=== PATIENT | male | born 1965 | race Caucasian/White ===

== ENCOUNTER 2018-09-16 14:46 | Emergency (ER) | payer MEDICAID ==
[~2018-09-16] VITALS: Ht 182.9 cm; Wt 92.9 kg
[2018-09-16 15:21] LABS: BASOPHILS # (AUTO) 0.03 x10^3/uL (0-0.1); BASOPHILS % (AUTO) 0 % (0-1); EOSINOPHILS # (AUTO) 0.86 x10^3/uL (0-0.4); EOSINOPHILS % (AUTO) 10 % (1-7); LYMPHOCYTES # (AUTO) 2.28 x10^3/uL (1-3.4); LYMPHOCYTES % (AUTO) 27 % (22-44); MD NO; MEAN CORPUSCULAR HEMOGLOBIN 31.3 pg (27.5-34.5); MEAN CORPUSCULAR HGB CONC 33.7 g/dL (33.2-36.2); MEAN CORPUSCULAR VOLUME 92.8 fL (81-97); MEAN PLATELET VOLUME 7.2 fL (7.4-10.4); MONOCYTES # (AUTO) 0.66 x10^3/uL (0.2-0.8); MONOCYTES % (AUTO) 8 % (2-9); NEUTROPHILS # (AUTO) 4.78 x10^3/uL (1.8-6.8); NEUTROPHILS % (AUTO) 56 % (42-75); PLATELET COUNT 278 x10^3/uL (130-400); RED BLOOD COUNT 4.94 x10^6/uL (4.38-5.82); RED CELL DISTRIBUTION WIDTH 13.1 % (9.4-14.8)
[2018-09-16 15:28] LABS: ALBUMIN 3.8 g/dL (3.4-5.0); ANION GAP 7 mmol/L (5-15); CALCIUM 9.8 mg/dL (8.5-10.1); CHLORIDE 109 mmol/L (98-107)
[2018-09-16] MEDS ORDERED: METO25TA35 PO (15:53)
[2018-09-16] MEDS ORDERED: SERT50TA5 PO (15:53)
[2018-09-16] MEDS ORDERED: HYDR12.53 PO (15:54)
[2018-09-16] MEDS ORDERED: LISI2.5T PO (15:54)
[2018-09-16] MEDS ORDERED: MELO7.5T31 PO (15:55)
[2018-09-16] MEDS ORDERED: ALBU8.5H8 INH (15:55)
[2018-09-16] MEDS ORDERED: THIA100T27 PO (15:56)
[2018-09-16] MEDS ORDERED: TRAZ-136 PO (15:56)
[2018-09-16] MEDS ORDERED: HYDR25TA11 PO (15:56)
[2018-09-16] MEDS ORDERED: BUDE10.22 INH (15:57)
[2018-09-16] MEDS ORDERED: NAPR220C2 PO (15:57)
[2018-09-16] MEDS ORDERED: TIOT18CA INH (15:58)
[2018-09-16 16:14] VITALS: BP 162/93
== END 2018-09-16 17:41 | disposition home or self-care (01) ==
LOC: ED 17:35
DX: I10 Essential (primary) hypertension (principal); J44.9 Chronic obstructive pulmonary disease, unspecified; M19.90 Unspecified osteoarthritis, unspecified site; Z87.891 Personal history of nicotine dependence; Z72.9 Problem related to lifestyle, unspecified
CPT/HCPCS: 36415; 80048; 82040; 85025; 99284

== ENCOUNTER 2019-10-10 14:21 | Inpatient (IN) | payer MEDICAID, OTHER ==
[~2019-10-10] VITALS: Ht 182.9 cm; Wt 93.1 kg
[2019-10-10] VITALS (7 sets, daily range): BP systolic 155–192; BP diastolic 102–119
[~2019-10-10 14:21] MED LIST: ALBU8.5H8 INH; BUDE10.22 INH; HYDR-826 PO; HYDR12.517 PO; LISI2.5T PO; MELO7.5T31 PO; METO25TA35 PO; NAPR220C2 PO; SERT50TA28 PO; THIA100T27 PO; TIOT18CA INH; TRAZ50TA66 PO
--- NOTE | 2019-10-10 14:42 | NUR ---
PT BIB BY [facility] FOR SOB SINCE 99 THIS MORNING. HX OF COPD, PNEMONIA. TRIED ALBUTEROL INHALER AND THAT DIDNT SEEM TO HELP. [facility] PEFORMED A ALBUTEROL BREATHING TREATMENT THAT DIDNT SEEM TO HELP. PT SAYS "I FEEL LIKE IM DROWNING". PT HAS HX OF ALCOHOLISM. STATES HE DRINKS "2 PINTS OF VODKA PER DAY". HE IS SHAKY AND NON AGITATED.
[2019-10-10] MEDS ORDERED: SODIUM CHLORIDE 0.9% 1,000ML IVBOLUS ONE (15:00)
[2019-10-10] MEDS ORDERED: ALBUTEROL/IPRATROPIUM 2.5MG/0.5MG, 3 ML NPPB ONE (15:00)
[2019-10-10] MEDS ORDERED: SODIUM CHLORIDE FLUSH 10ML SYR IVF ONE (15:00)
[2019-10-10] MEDS ORDERED: THIAMINE 100 MG in SODIUM CHLORIDE 0.9% 50 ML IVPB ONE (15:00)
[2019-10-10] MEDS ORDERED: LORazepam 2 MG/ML, 1ML ONE ×2 (15:14→16:18)
[2019-10-10] MEDS ORDERED: ALBUTEROL/IPRATROPIUM 2.5MG/0.5MG, 3 ML ONE (15:15)
[2019-10-10 15:18] LABS: BASOPHILS # (AUTO) 0.01 x10^3/uL (0-0.1); BASOPHILS % (AUTO) 0 % (0-1); EOSINOPHILS # (AUTO) 0.03 x10^3/uL (0-0.4); EOSINOPHILS % (AUTO) 0 % (1-7); LYMPHOCYTES # (AUTO) 1.17 x10^3/uL (1-3.4); LYMPHOCYTES % (AUTO) 9 % (22-44); MD NO; MEAN CORPUSCULAR HEMOGLOBIN 32.5 pg (27.5-34.5); MEAN CORPUSCULAR HGB CONC 33.1 g/dL (33.2-36.2); MEAN CORPUSCULAR VOLUME 98.2 fL (81-97); MEAN PLATELET VOLUME 7.5 fL (7.4-10.4); MONOCYTES % (AUTO) 4 % (2-9); NEUTROPHILS # (AUTO) 11.94 x10^3/uL (1.8-6.8); NEUTROPHILS % (AUTO) 87 % (42-75); PLATELET COUNT 286 x10^3/uL (130-400); RED BLOOD COUNT 5.28 x10^6/uL (4.38-5.82); RED CELL DISTRIBUTION WIDTH 15.2 % (9.4-14.8)
[2019-10-10] MEDS: LORazepam 2 MG/ML, 1ML IVPush PRN ×3 (15:18→20:56)
[2019-10-10 15:29] LABS: ANION GAP 15 mmol/L (5-15); CALCIUM 9.4 mg/dL (8.5-10.1); CHLORIDE 99 mmol/L (98-107); CREATININE 1.08 mg/dL (0.7-1.3)
[2019-10-10 15:33] LABS: TROPONIN I < 0.015 ng/mL (0.000-0.045)
--- NOTE | 2019-10-10 16:27 | NUR ---
PT RESTING IN HOSPITAL BED. PT WAS SHAKING - 1MG ATIVAN GIVEN. CALL LIGHT WITHIN REACH. AWAITING ADM ORDER
[2019-10-10] MEDS ORDERED: ONDANSETRON 2MG/ML, 2ML IVPush PRN (17:00)
[2019-10-10] MEDS ORDERED: ACETAMINOPHEN 325 MG TABLET PO PRN (17:00)
[2019-10-10] MEDS ORDERED: LABETALOL 5MG/ML, 20ML IVPush PRN (17:00)
[2019-10-10] MEDS ORDERED: PROMETHAZINE 25 MG/ML, 1ML IM PRN (17:00)
[2019-10-10] MEDS: methylPREDNISolone SOD SUCC 125 MG/2 ML IVPush SCH ×2 (17:00→17:26)
[2019-10-10] MEDS ORDERED: ASPIRIN 81 MG TABLET CHEW PO ONE (17:00)
[2019-10-10] MEDS ORDERED: ALBUTEROL/IPRATROPIUM 2.5MG/0.5MG, 3 ML HHN SCH (17:00)
--- NOTE | 2019-10-10 17:26 | NUR ---
PRECEPTOR NOTE: PER DR. AMBRIZ, SOLUMEDROL CAN BE HELD UNTIL TOMORROW AFTER PT RECEIVED 60 MG OF PREDNISONE TODAY.
[2019-10-10 17:30] LABS: TROPONIN I < 0.015 ng/mL (0.000-0.045)
[2019-10-10] MEDS ORDERED: HEPARIN 5,000 UNITS/ML, 1ML ONE (17:35)
[2019-10-10] MEDS ORDERED: ASPIRIN 81 MG TABLET CHEW ONE (17:35)
[2019-10-10] MEDS: HEPARIN 5,000 UNITS/ML, 1ML SQ SCH (17:44)
[2019-10-10] MEDS ORDERED: hydrALAzine 20 MG/ML, 1ML ONE (17:53)
[2019-10-10] MEDS: hydrALAzine 20 MG/ML, 1ML IVPush PRN ×2 (17:55→23:26)
[2019-10-10 18:09] LABS: HEMOGLOBIN A1C 6.1 % (4.2-6.3)
--- NOTE | 2019-10-10 18:22 | NUR ---
PRECEPTOR OTE: PT MOVED TO HOSPITAL BED. PT MEDICATED FOR HBP PER MD ORDER. WAITING FOR ROOM ASSIGNMENT.
--- NOTE | 2019-10-10 18:26 | NUR ---
PT AWAITING TELE ROOM. RESTING IN [facility] BED. NO REQUESTS AT THIS TIME.
--- NOTE | 2019-10-10 19:16 | NUR ---
PT IS RESTING IN [facility] BED. AWAITING ROOM ON CARD TELE. CALL LIGHT WITHIN REACH
[2019-10-10] MEDS ORDERED: LORazepam 2 MG/ML, 1ML IV PRN ×5 (20:30)
[2019-10-10] MEDS: HYDROCHLOROTHIAZIDE 12.5 MG CAPSULE PO SCH (20:43)
[2019-10-10] MEDS: METOPROLOL TARTRATE 50 MG TABLET PO SCH (20:43)
[2019-10-10] MEDS: GUAIFENESIN 200 MG TABLET PO SCH ×2 (20:43→21:00)
[2019-10-10] MEDS ORDERED: ATORVASTATIN 80 MG TABLET PO SCH (21:00)
[2019-10-11] VITALS (10 sets, daily range): BP systolic 134–192; BP diastolic 85–123
[2019-10-11 01:08] LABS: TROPONIN I < 0.015 ng/mL (0.000-0.045)
[2019-10-11] MEDS ORDERED: LABETALOL 20 MG/4 ML IVPush PRN (01:30)
[2019-10-11] MEDS: HEPARIN 5,000 UNITS/ML, 1ML SQ SCH ×4 (01:40→23:51)
[2019-10-11] MEDS: NITROGLYCERIN 0.4 MG BOTTLE (25 TABS) SL PRN ×2 (05:21→05:27)
[2019-10-11] MEDS ORDERED: NITROGLYCERIN 0.4 MG/SPRAY SL PRN (05:30)
[2019-10-11 05:57] LABS: BASOPHILS # (AUTO) 0.02 x10^3/uL (0-0.1); BASOPHILS % (AUTO) 0 % (0-1); EOSINOPHILS % (AUTO) 0 % (1-7); LYMPHOCYTES # (AUTO) 0.88 x10^3/uL (1-3.4); LYMPHOCYTES % (AUTO) 12 % (22-44); MD NO; MEAN CORPUSCULAR HEMOGLOBIN 32.3 pg (27.5-34.5); MEAN CORPUSCULAR HGB CONC 33.5 g/dL (33.2-36.2); MEAN CORPUSCULAR VOLUME 96.5 fL (81-97); MEAN PLATELET VOLUME 7.6 fL (7.4-10.4); MONOCYTES # (AUTO) 0.34 x10^3/uL (0.2-0.8); MONOCYTES % (AUTO) 5 % (2-9); NEUTROPHILS # (AUTO) 6.18 x10^3/uL (1.8-6.8); NEUTROPHILS % (AUTO) 83 % (42-75); PLATELET COUNT 255 x10^3/uL (130-400); RED BLOOD COUNT 5.11 x10^6/uL (4.38-5.82); RED CELL DISTRIBUTION WIDTH 15.1 % (9.4-14.8)
[2019-10-11 06:07] LABS: ALANINE AMINOTRANSFERASE 126 U/L (12-78); ALBUMIN 3.9 g/dL (3.4-5.0); ANION GAP 14 mmol/L (5-15); CALCIUM 9.5 mg/dL (8.5-10.1); CHLORIDE 99 mmol/L (98-107)
[2019-10-11 06:11] LABS: CREATININE 0.79 mg/dL (0.7-1.3)
[2019-10-11 06:12] LABS: ALKALINE PHOSPHATASE 124 U/L (45-117); BILIRUBIN,TOTAL 1.1 mg/dL (0.2-1.0); TOTAL PROTEIN 7.7 g/dL (6.4-8.2); TROPONIN I < 0.015 ng/mL (0.000-0.045)
[2019-10-11] MEDS: methylPREDNISolone SOD SUCC 125 MG/2 ML IVPush SCH ×4 (06:38→23:52)
[2019-10-11] MEDS: GUAIFENESIN 200 MG TABLET PO SCH ×4 (06:38→20:51)
[2019-10-11] MEDS: METOPROLOL TARTRATE 50 MG TABLET PO SCH ×2 (09:33→20:52)
[2019-10-11] MEDS: THIAMINE 100MG TABLET PO SCH (09:33)
[2019-10-11] MEDS: TRAZODONE 100MG TABLET PO SCH (09:33)
[2019-10-11] MEDS: LISINOPRIL 40 MG TABLET PO SCH (09:34)
[2019-10-11] MEDS: SERTRALINE 50MG TABLET PO SCH (09:34)
[2019-10-11] MEDS: FOLIC ACID 1 MG TABLET PO SCH (09:34)
[2019-10-11] MEDS: HYDROCHLOROTHIAZIDE 12.5 MG CAPSULE PO SCH (09:34)
[2019-10-11] MEDS: MULTIVITAMINS/MINERALS TABLET PO SCH (09:34)
[2019-10-11] MEDS ORDERED: HYDROCHLOROTHIAZIDE 12.5 MG CAPSULE PO SCH ×2 (14:30→21:00)
[2019-10-12 00:33] VITALS: BP 132/87
[2019-10-12] MEDS: methylPREDNISolone SOD SUCC 125 MG/2 ML IVPush SCH ×3 (04:55→17:14)
[2019-10-12] MEDS: GUAIFENESIN 200 MG TABLET PO SCH ×4 (04:55→21:04)
[2019-10-12 05:52] LABS: BASOPHILS # (AUTO) 0.01 x10^3/uL (0-0.1); BASOPHILS % (AUTO) 0 % (0-1); EOSINOPHILS % (AUTO) 0 % (1-7); LYMPHOCYTES # (AUTO) 0.71 x10^3/uL (1-3.4); LYMPHOCYTES % (AUTO) 6 % (22-44); MD NO; MEAN CORPUSCULAR HEMOGLOBIN 32.2 pg (27.5-34.5); MEAN CORPUSCULAR HGB CONC 33.5 g/dL (33.2-36.2); MEAN CORPUSCULAR VOLUME 96.4 fL (81-97); MEAN PLATELET VOLUME 7.6 fL (7.4-10.4); MONOCYTES # (AUTO) 0.39 x10^3/uL (0.2-0.8); MONOCYTES % (AUTO) 3 % (2-9); NEUTROPHILS # (AUTO) 10.13 x10^3/uL (1.8-6.8); NEUTROPHILS % (AUTO) 90 % (42-75); PLATELET COUNT 245 x10^3/uL (130-400); RED BLOOD COUNT 5.06 x10^6/uL (4.38-5.82); RED CELL DISTRIBUTION WIDTH 15.1 % (9.4-14.8)
[2019-10-12 06:01] LABS: CHLORIDE 98 mmol/L (98-107)
[2019-10-12 06:06] LABS: ALANINE AMINOTRANSFERASE 103 U/L (12-78); ALKALINE PHOSPHATASE 110 U/L (45-117); ANION GAP 10 mmol/L (5-15); BILIRUBIN,TOTAL 0.9 mg/dL (0.2-1.0); CALCIUM 9.5 mg/dL (8.5-10.1); CHOL/HDL RATIO 2.7; CHOLESTEROL, TOTAL 241 mg/dL (140-239); CREATININE 0.97 mg/dL (0.7-1.3); HDL CHOL % 37 % (26-37); HDL CHOLESTEROL (DIRECT) 90 mg/dL (40-60); LDL CHOLESTEROL,CALCULATED 122 mg/dL (54-169); LDL/HDL RATIO 1.4 (0.5-3.0); TOTAL PROTEIN 7.7 g/dL (6.4-8.2); TRIGLYCERIDES 146 mg/dL (50-200); VLDL CHOLESTEROL 29 mg/dL (0-25)
[2019-10-12 07:44] VITALS: BP 147/97
[2019-10-12] MEDS: FOLIC ACID 1 MG TABLET PO SCH (09:40)
[2019-10-12] MEDS: THIAMINE 100MG TABLET PO SCH (09:40)
[2019-10-12] MEDS: SERTRALINE 50MG TABLET PO SCH (09:40)
[2019-10-12] MEDS: METOPROLOL TARTRATE 50 MG TABLET PO SCH ×2 (09:41→20:42)
[2019-10-12] MEDS: MULTIVITAMINS/MINERALS TABLET PO SCH (09:41)
[2019-10-12] MEDS: HEPARIN 5,000 UNITS/ML, 1ML SQ SCH ×2 (09:41→17:14)
[2019-10-12] MEDS: HYDROCHLOROTHIAZIDE 25 MG TABLET PO SCH (09:41)
[2019-10-12] MEDS: LISINOPRIL 40 MG TABLET PO SCH (09:42)
[2019-10-12] MEDS: TRAZODONE 100MG TABLET PO SCH (09:42)
[2019-10-12 13:31] VITALS: BP 123/79
[2019-10-12] MEDS: ALBUTEROL/IPRATROPIUM 2.5MG/0.5MG, 3 ML NPPB SCH ×2 (14:48→20:19)
[2019-10-12] MEDS ORDERED: MAALOX/HYOSCYAMINE/LIDOCAINE 45 ML BTL PO PRN (16:30)
[2019-10-12 20:40] VITALS: BP 119/83
[2019-10-12] MEDS ORDERED: BUDESONIDE 0.5 MG/2 ML INHA NPPB SCH (21:00)
[2019-10-13] MEDS: methylPREDNISolone SOD SUCC 125 MG/2 ML IVPush SCH ×2 (00:14→05:53)
[2019-10-13] MEDS: HEPARIN 5,000 UNITS/ML, 1ML SQ SCH ×4 (00:15→21:11)
[2019-10-13 02:11] VITALS: BP 122/89
[2019-10-13] MEDS: ALBUTEROL/IPRATROPIUM 2.5MG/0.5MG, 3 ML NPPB SCH ×4 (02:28→21:00)
[2019-10-13] MEDS: GUAIFENESIN 200 MG TABLET PO SCH ×4 (05:53→21:10)
[2019-10-13] MEDS: LISINOPRIL 40 MG TABLET PO SCH (08:03)
[2019-10-13] MEDS: SERTRALINE 50MG TABLET PO SCH (08:03)
[2019-10-13] MEDS: TRAZODONE 100MG TABLET PO SCH (08:03)
[2019-10-13] MEDS: THIAMINE 100MG TABLET PO SCH (08:03)
[2019-10-13] MEDS: METOPROLOL TARTRATE 50 MG TABLET PO SCH ×2 (08:03→21:10)
[2019-10-13] MEDS: FOLIC ACID 1 MG TABLET PO SCH (08:03)
[2019-10-13] MEDS: HYDROCHLOROTHIAZIDE 25 MG TABLET PO SCH (08:03)
[2019-10-13] MEDS: MULTIVITAMINS/MINERALS TABLET PO SCH (08:04)
[2019-10-13 08:08] VITALS: BP 146/85
[2019-10-13 13:39] VITALS: BP 109/74
[2019-10-13 19:31] VITALS: BP 118/78
[2019-10-14 01:17] VITALS: BP 121/79
[2019-10-14] MEDS: ALBUTEROL/IPRATROPIUM 2.5MG/0.5MG, 3 ML NPPB SCH ×2 (03:00→09:00)
[2019-10-14 05:43] LABS: CHLORIDE 98 mmol/L (98-107)
[2019-10-14 05:52] LABS: ALANINE AMINOTRANSFERASE 98 U/L (12-78); ALBUMIN 3.3 g/dL (3.4-5.0); ALKALINE PHOSPHATASE 83 U/L (45-117); ANION GAP 8 mmol/L (5-15); BILIRUBIN,TOTAL 0.5 mg/dL (0.2-1.0); CALCIUM 8.4 mg/dL (8.5-10.1); CREATININE 1.01 mg/dL (0.7-1.3); TOTAL PROTEIN 6.1 g/dL (6.4-8.2)
[2019-10-14] MEDS: GUAIFENESIN 200 MG TABLET PO SCH ×2 (06:00→11:57)
[2019-10-14] MEDS: FOLIC ACID 1 MG TABLET PO SCH (08:42)
[2019-10-14] MEDS: THIAMINE 100MG TABLET PO SCH (08:42)
[2019-10-14] MEDS: SERTRALINE 50MG TABLET PO SCH (08:42)
[2019-10-14] MEDS: HYDROCHLOROTHIAZIDE 25 MG TABLET PO SCH (08:43)
[2019-10-14] MEDS: METOPROLOL TARTRATE 50 MG TABLET PO SCH (08:43)
[2019-10-14] MEDS: TRAZODONE 100MG TABLET PO SCH (08:43)
[2019-10-14] MEDS: LISINOPRIL 40 MG TABLET PO SCH (08:44)
[2019-10-14] MEDS: HEPARIN 5,000 UNITS/ML, 1ML SQ SCH (08:44)
[2019-10-14 08:47] VITALS: BP 132/85
[2019-10-14] MEDS: MULTIVITAMINS/MINERALS TABLET PO SCH (08:56)
[2019-10-14] MEDS ORDERED: POTASSIUM CHLORIDE 20 MEQ TAB.ER.PRT PO SCH ×2 (09:00→17:00)
[2019-10-14] MEDS ORDERED: REGADENOSON 0.4 MG/5 ML SYRINGE ONE (09:45)
[2019-10-14 14:18] VITALS: BP 118/73
[2019-10-14] MEDS ORDERED: POTA20TA6 PO (14:19)
[2019-10-14] MEDS ORDERED: TIOT18CA INH (14:19)
[2019-10-14] MEDS ORDERED: GUAI200T37 PO (14:19)
[2019-10-14] MEDS ORDERED: ALBU90AE INH (14:19)
[2019-10-14] MEDS ORDERED: BUDE10.2 INH (14:19)
[2019-10-14] MEDS ORDERED: HYDR25TA6 PO (14:19)
[2019-10-14] MEDS ORDERED: THIA100T67 PO (14:19)
[2019-10-14] MEDS ORDERED: PRED20TA PO (14:19)
[2019-10-14 14:22] VITALS: BP 166/89
[2019-10-14 14:24] VITALS: BP 161/80
== END 2019-10-14 16:13 | disposition home or self-care (01) | DRG 189 ==
LOC: ED 15:06 → EDIP 16:17 → 5SO 19:55 → DCLOUNGE 10-14 15:50
PROVIDERS: ADMIT Internal Medicine; ATTEND Internal Medicine
DX: J96.21 Acute and chronic respiratory failure with hypoxia (principal); E87.1 Hypo-osmolality and hyponatremia; E87.2 Acidosis; F10.239 Alcohol dependence with withdrawal, unspecified; J44.1 Chronic obstructive pulmonary disease with (acute) exacerbation; D72.829 Elevated white blood cell count, unspecified; E87.6 Hypokalemia; G47.00 Insomnia, unspecified; G89.4 Chronic pain syndrome; I10 Essential (primary) hypertension; I16.0 Hypertensive urgency; K21.9 Gastro-esophageal reflux disease without esophagitis; M19.90 Unspecified osteoarthritis, unspecified site; Z87.891 Personal history of nicotine dependence; Z91.14 Patient's other noncompliance with medication regimen; R73.9 Hyperglycemia, unspecified; R00.0 Tachycardia, unspecified
CPT/HCPCS: 36415; 93017; 99285; J7620; 71045; 78452; 80048; 80053; 80061; 80307; 82040; 83036; 84443; 84484; 85025; 93005; 93306; 94640; G0378; J1644; J2785; J3411; J7509; A9502; J0360; J2060; J2930; J3490; J7030; J7512; Q0177

== ENCOUNTER 2019-11-27 08:18 | Inpatient (IN) | payer SELFPAY ==
[~2019-11-27] VITALS: Ht 182.9 cm; Wt 97.2 kg
[~2019-11-27 08:18] MED LIST changes: +ALBU90AE INH; +BUDE10.2 INH; +GUAI200T37 PO; +HYDR25TA6 PO; +POTA20TA6 PO; +PRED20TA PO; +THIA100T67 PO
--- NOTE | 2019-11-27 08:41 | NUR ---
PT HR TACH, PT HAS MINIMAL TREMORS IN BILAT HANDS.
[2019-11-27] MEDS ORDERED: ALBUTEROL/IPRATROPIUM 2.5MG/0.5MG, 3 ML ONE (08:57)
[2019-11-27] MEDS ORDERED: THIAMINE 100MG TABLET PO ONE (09:00)
[2019-11-27] MEDS ORDERED: ONDANSETRON ODT 4 MG PO ONE (09:00)
[2019-11-27] MEDS ORDERED: LORazepam 2 MG/ML, 1ML IVPush ONE ×2 (09:00→11:00)
[2019-11-27] MEDS ORDERED: SODIUM CHLORIDE 0.9% 1,000ML IVBOLUS ONE ×2 (09:00→11:00)
[2019-11-27] MEDS ORDERED: ONDANSETRON ODT 4 MG ONE (09:04)
[2019-11-27] MEDS ORDERED: THIAMINE 100MG TABLET ONE (09:04)
[2019-11-27] MEDS ORDERED: LORazepam 2 MG/ML, 1ML ONE ×2 (09:04→11:08)
[2019-11-27] MEDS: ALBUTEROL/IPRATROPIUM 2.5MG/0.5MG, 3 ML NPPB SCH (09:05)
[2019-11-27 09:21] LABS: BASOPHILS # (AUTO) 0.03 x10^3/uL (0-0.1); BASOPHILS % (AUTO) 0 % (0-1); EOSINOPHILS # (AUTO) 0.03 x10^3/uL (0-0.4); EOSINOPHILS % (AUTO) 0 % (1-7); LYMPHOCYTES # (AUTO) 1.66 x10^3/uL (1-3.4); LYMPHOCYTES % (AUTO) 12 % (22-44); MD NO; MEAN CORPUSCULAR HGB CONC 33.6 g/dL (33.2-36.2); MEAN CORPUSCULAR VOLUME 98.2 fL (81-97); MONOCYTES # (AUTO) 0.62 x10^3/uL (0.2-0.8); MONOCYTES % (AUTO) 5 % (2-9); NEUTROPHILS # (AUTO) 11.03 x10^3/uL (1.8-6.8); NEUTROPHILS % (AUTO) 83 % (42-75); PLATELET COUNT 390 x10^3/uL (130-400); RED BLOOD COUNT 5.22 x10^6/uL (4.38-5.82); RED CELL DISTRIBUTION WIDTH 14.4 % (9.4-14.8)
--- NOTE | 2019-11-27 09:30 | NUR ---
IV STARTED, ORDERED MEDS AND FLUIDS GIVEN. SEE CHARTED VITALS. PT IN HOSPITAL GOWN. CARDIAC AND VITALS MONITORS PLACED ON PT. CALL LIGHT WITHIN REACH. WILL CONTINUE TO MONITOR.
[2019-11-27 09:33] LABS: ALBUMIN 4.3 g/dL (3.4-5.0); ANION GAP 18 mmol/L (5-15); CALCIUM 9.3 mg/dL (8.5-10.1); CHLORIDE 99 mmol/L (98-107)
[2019-11-27 09:35] LABS: ALANINE AMINOTRANSFERASE 100 U/L (12-78); ALKALINE PHOSPHATASE 121 U/L (45-117); CREATININE 1.22 mg/dL (0.7-1.3); TOTAL PROTEIN 8.7 g/dL (6.4-8.2)
--- NOTE | 2019-11-27 10:11 | NUR ---
PT RESTING CALML IN BED, NO STATED NEEDS AT THIS TIME. PT ABLE TO GIVE URINE SAMPLE, URINE WALKED TO LAB. WILL CONTINUE TO MONITOR.
[2019-11-27 10:25] LABS: AMPHETAMINE SCREEN, URINE Negative (Negative); BARBITURATE SCREEN, URINE Negative (Negative); BENZODIAZEPINE SCREEN, URINE Negative (Negative); CANNABINOID SCREEN, URINE Negative (Negative); COCAINE SCREEN, URINE Negative (Negative); METHADONE SCREEN, URINE Negative (Negative); OPIATE SCREEN, URINE Negative (Negative)
--- NOTE | 2019-11-27 11:22 | NUR ---
ORDERED MEDS AND FLUIDS ADMINISTERED. PT CONTINUES TO REST CALMLY IN BED. PT STATED FIRST DOSE OF ORDERED ATIVAN DIDN'T HELP THE SHAKES, BUT MADE HIM TIRED. PT DOES NOT SEEM TREMULOUS AT THIS TIME. CALL LIGHT WITHIN REACH. WILL CONTINUE TO MONITOR.
--- NOTE | 2019-11-27 11:51 | NUR ---
REPORT RECEIVED, ASSUMED CARE OF PT, VSS, PT DENIES NEEDS AT THIS TIME
[2019-11-27] MEDS ORDERED: SODIUM CHLORIDE 0.9% 1,000 ML IV ONE (12:47)
[2019-11-27] MEDS ORDERED: SODIUM CHLORIDE FLUSH 10ML SYR IVF PRN (13:00)
--- NOTE | 2019-11-27 13:16 | NUR ---
IV FLUID HUNG PER [place], PT UPDATED ON POC. NAD NOTED
[2019-11-27] MEDS ORDERED: PROMETHAZINE 25 MG/ML, 1ML IM PRN (14:30)
[2019-11-27] MEDS ORDERED: DOCUSATE 100 MG CAPSULE PO PRN (14:30)
[2019-11-27] MEDS ORDERED: ONDANSETRON 2MG/ML, 2ML IVPush PRN (14:30)
[2019-11-27] MEDS ORDERED: POLYETHYLENE GLYCOL 17 GM PACKET PO PRN (14:30)
[2019-11-27] MEDS ORDERED: BISACODYL 10 MG SUPP PR PRN (14:30)
[2019-11-27] MEDS ORDERED: ACETAMINOPHEN 325 MG TABLET PO PRN (14:30)
[2019-11-27] MEDS ORDERED: LORazepam 1MG TABLET PO PRN ×2 (15:00)
[2019-11-27 15:15] LABS: TROPONIN I < 0.015 ng/mL (0.000-0.045)
[2019-11-27] MEDS ORDERED: ALBUTEROL/IPRATROPIUM 2.5MG/0.5MG, 3 ML NPPB PRN (15:30)
--- NOTE | 2019-11-27 15:57 | NUR ---
REPORT CALLED TO RECIEVING AVELINA SANCHEZ
[2019-11-27 16:34] VITALS: BP 168/91
[2019-11-27 17:13] LABS: MICROSCOPIC NOT IND
[2019-11-27 17:21] LABS: CULTURE INDICATED? NO
[2019-11-27] MEDS: methylPREDNISolone SOD SUCC 40 MG/ML IVPush SCH ×2 (17:31→23:01)
[2019-11-27] MEDS: ENOXAPARIN 40 MG/0.4 ML SQ SCH (17:31)
[2019-11-27] MEDS: CHLORDIAZEPOXIDE 25 MG CAPSULE PO SCH ×2 (17:31→23:01)
[2019-11-27] MEDS: LORazepam 0.5MG TABLET PO PRN ×2 (17:35→20:58)
[2019-11-27 18:49] VITALS: BP_SYST 166; BP_SYST 169; BP_DIAS 101; BP_DIAS 112
[2019-11-27 20:59] LABS: TROPONIN I < 0.015 ng/mL (0.000-0.045)
[2019-11-28 00:22] VITALS: BP 149/98
[2019-11-28] MEDS: LORazepam 0.5MG TABLET PO PRN ×5 (02:16→21:19)
[2019-11-28 03:05] LABS: BASOPHILS # (AUTO) 0.02 x10^3/uL (0-0.1); BASOPHILS % (AUTO) 0 % (0-1); EOSINOPHILS % (AUTO) 0 % (1-7); LYMPHOCYTES # (AUTO) 0.61 x10^3/uL (1-3.4); LYMPHOCYTES % (AUTO) 13 % (22-44); MD NO; MEAN CORPUSCULAR HEMOGLOBIN 33.1 pg (27.5-34.5); MEAN CORPUSCULAR HGB CONC 34.1 g/dL (33.2-36.2); MEAN CORPUSCULAR VOLUME 97.1 fL (81-97); MEAN PLATELET VOLUME 7.7 fL (7.4-10.4); MONOCYTES # (AUTO) 0.04 x10^3/uL (0.2-0.8); MONOCYTES % (AUTO) 1 % (2-9); NEUTROPHILS % (AUTO) 85 % (42-75); PLATELET COUNT 312 x10^3/uL (130-400); RED BLOOD COUNT 4.59 x10^6/uL (4.38-5.82)
[2019-11-28 03:07] LABS: ALANINE AMINOTRANSFERASE 65 U/L (12-78); ALBUMIN 3.7 g/dL (3.4-5.0); ANION GAP 7 mmol/L (5-15); CALCIUM 8.9 mg/dL (8.5-10.1); CHLORIDE 103 mmol/L (98-107); CREATININE 0.87 mg/dL (0.7-1.3)
[2019-11-28 03:10] LABS: TROPONIN I < 0.015 ng/mL (0.000-0.045)
[2019-11-28 03:18] LABS: ALKALINE PHOSPHATASE 101 U/L (45-117); BILIRUBIN,TOTAL 0.8 mg/dL (0.2-1.0); TOTAL PROTEIN 7.3 g/dL (6.4-8.2)
[2019-11-28] MEDS: methylPREDNISolone SOD SUCC 40 MG/ML IVPush SCH ×4 (05:04→23:17)
[2019-11-28] MEDS: CHLORDIAZEPOXIDE 25 MG CAPSULE PO SCH ×2 (05:04→10:47)
[2019-11-28 07:01] VITALS: BP 158/100
[2019-11-28] MEDS ORDERED: POTASSIUM PHOSPHATE 44 MEQ in SODIUM CHLORIDE 0.9% 500 ML IV ONE (08:30)
[2019-11-28] MEDS: MULTIVITS,STRESS FORMULA 1 TABLET PO SCH (10:46)
[2019-11-28] MEDS: FOLIC ACID 1 MG TABLET PO SCH (10:47)
[2019-11-28] MEDS: THIAMINE 100MG TABLET PO SCH (10:47)
[2019-11-28] MEDS: MULTIVITAMINS/MINERALS TABLET PO SCH (10:47)
[2019-11-28] MEDS: GABAPENTIN 300 MG CAPSULE PO SCH ×3 (10:47→21:19)
[2019-11-28] MEDS: ASCORBIC ACID 500 MG TABLET PO SCH ×2 (10:47→16:51)
[2019-11-28] MEDS ORDERED: ALBUTEROL SULFATE 2.5 MG/3 ML NPPB PRN (11:30)
[2019-11-28 13:02] VITALS: BP 170/110
[2019-11-28] MEDS: ALBUTEROL/IPRATROPIUM 2.5MG/0.5MG, 3 ML NPPB SCH ×2 (15:00→21:00)
[2019-11-28] MEDS: OXYcodone IR 5MG TABLET PO PRN ×2 (15:08→21:21)
[2019-11-28 15:18] VITALS: BP 154/100
[2019-11-28] MEDS: CHOLECALCIFEROL 400 UNITS TABLET PO SCH (16:50)
[2019-11-28] MEDS: ENOXAPARIN 40 MG/0.4 ML SQ SCH (16:50)
[2019-11-28 17:06] VITALS: BP 151/96
[2019-11-28 19:41] VITALS: BP 155/99
[2019-11-28] MEDS: BUDESONIDE 0.5 MG/2 ML INHA INH SCH (21:00)
[2019-11-29 01:55] VITALS: BP 144/90
[2019-11-29] MEDS: OXYcodone IR 5MG TABLET PO PRN ×5 (02:13→22:53)
[2019-11-29] MEDS: ALBUTEROL/IPRATROPIUM 2.5MG/0.5MG, 3 ML NPPB SCH ×4 (02:52→20:38)
[2019-11-29] MEDS: methylPREDNISolone SOD SUCC 40 MG/ML IVPush SCH ×4 (05:02→22:53)
[2019-11-29] MEDS: LORazepam 0.5MG TABLET PO PRN (05:02)
[2019-11-29 05:24] LABS: MEAN CORPUSCULAR HGB CONC 33.5 g/dL (33.2-36.2); MEAN CORPUSCULAR VOLUME 98.3 fL (81-97); PLATELET COUNT 291 x10^3/uL (130-400); RED BLOOD COUNT 4.27 x10^6/uL (4.38-5.82); RED CELL DISTRIBUTION WIDTH 14.8 % (9.4-14.8)
[2019-11-29 05:26] LABS: ALBUMIN 3.5 g/dL (3.4-5.0); ANION GAP 11 mmol/L (5-15); CALCIUM 8.9 mg/dL (8.5-10.1); CHLORIDE 104 mmol/L (98-107)
[2019-11-29 06:41] LABS: BASOPHILS % (AUTO) 0 % (0-1); EOSINOPHILS % (AUTO) 0 % (1-7); LYMPHOCYTES # (AUTO) 0.64 x10^3/uL (1-3.4); LYMPHOCYTES % (AUTO) 6 % (22-44); MD SCAN; MONOCYTES # (AUTO) 0.47 x10^3/uL (0.2-0.8); MONOCYTES % (AUTO) 4 % (2-9); NEUTROPHILS # (AUTO) 10.07 x10^3/uL (1.8-6.8); NEUTROPHILS % (AUTO) 90 % (42-75)
[2019-11-29 07:33] VITALS: BP 157/100
[2019-11-29] MEDS ORDERED: POTASSIUM PHOSPHATE 44 MEQ in SODIUM CHLORIDE 0.9% 500 ML IV ONE (08:00)
[2019-11-29] MEDS ORDERED: MAGNESIUM SULFATE PMX 2GM/50ML 50 ML IV ONE (08:00)
[2019-11-29] MEDS ORDERED: POTASSIUM CHLORIDE 20 MEQ in SODIUM CHLORIDE 0.9% 250 ML IV ONE (08:00)
[2019-11-29] MEDS: GABAPENTIN 300 MG CAPSULE PO SCH ×3 (09:02→21:16)
[2019-11-29] MEDS: ASCORBIC ACID 500 MG TABLET PO SCH ×2 (09:02→16:44)
[2019-11-29] MEDS: THIAMINE 100MG TABLET PO SCH (09:02)
[2019-11-29] MEDS: MULTIVITAMINS/MINERALS TABLET PO SCH (09:02)
[2019-11-29] MEDS: MULTIVITS,STRESS FORMULA 1 TABLET PO SCH (09:02)
[2019-11-29] MEDS: FOLIC ACID 1 MG TABLET PO SCH (09:02)
[2019-11-29] MEDS: BUDESONIDE 0.5 MG/2 ML INHA INH SCH ×2 (09:40→20:38)
[2019-11-29 12:03] VITALS: BP 163/105
[2019-11-29] MEDS: ENOXAPARIN 40 MG/0.4 ML SQ SCH (16:44)
[2019-11-29] MEDS: CHOLECALCIFEROL 400 UNITS TABLET PO SCH (16:44)
[2019-11-29 19:50] VITALS: BP 155/99
[2019-11-30] VITALS (8 sets, daily range): BP systolic 148–194; BP diastolic 94–114
[2019-11-30] MEDS: ALBUTEROL/IPRATROPIUM 2.5MG/0.5MG, 3 ML NPPB SCH ×4 (02:52→20:24)
[2019-11-30] MEDS: OXYcodone IR 5MG TABLET PO PRN ×5 (03:47→21:05)
[2019-11-30 05:19] LABS: BASOPHILS # (AUTO) 0.02 x10^3/uL (0-0.1); BASOPHILS % (AUTO) 0 % (0-1); CHLORIDE 104 mmol/L (98-107); EOSINOPHILS % (AUTO) 0 % (1-7); LYMPHOCYTES # (AUTO) 0.88 x10^3/uL (1-3.4); LYMPHOCYTES % (AUTO) 8 % (22-44); MD NO; MEAN CORPUSCULAR HEMOGLOBIN 32.6 pg (27.5-34.5); MEAN CORPUSCULAR HGB CONC 33.4 g/dL (33.2-36.2); MEAN CORPUSCULAR VOLUME 97.6 fL (81-97); MEAN PLATELET VOLUME 8.1 fL (7.4-10.4); MONOCYTES # (AUTO) 0.31 x10^3/uL (0.2-0.8); MONOCYTES % (AUTO) 3 % (2-9); NEUTROPHILS # (AUTO) 10.27 x10^3/uL (1.8-6.8); NEUTROPHILS % (AUTO) 89 % (42-75); PLATELET COUNT 281 x10^3/uL (130-400); RED BLOOD COUNT 4.41 x10^6/uL (4.38-5.82); RED CELL DISTRIBUTION WIDTH 14.6 % (9.4-14.8)
[2019-11-30 05:25] LABS: ALBUMIN 3.6 g/dL (3.4-5.0); ANION GAP 10 mmol/L (5-15); CALCIUM 8.8 mg/dL (8.5-10.1); CREATININE 0.89 mg/dL (0.7-1.3)
[2019-11-30] MEDS: methylPREDNISolone SOD SUCC 40 MG/ML IVPush SCH (06:06)
[2019-11-30] MEDS: GABAPENTIN 300 MG CAPSULE PO SCH ×3 (08:05→21:04)
[2019-11-30] MEDS: FOLIC ACID 1 MG TABLET PO SCH (08:07)
[2019-11-30] MEDS: THIAMINE 100MG TABLET PO SCH (08:07)
[2019-11-30] MEDS: MULTIVITAMINS/MINERALS TABLET PO SCH (08:07)
[2019-11-30] MEDS: MULTIVITS,STRESS FORMULA 1 TABLET PO SCH (08:07)
[2019-11-30] MEDS: ASCORBIC ACID 500 MG TABLET PO SCH ×2 (08:07→16:32)
[2019-11-30] MEDS: BUDESONIDE 0.5 MG/2 ML INHA INH SCH ×2 (09:00→20:24)
[2019-11-30] MEDS ORDERED: OXYcodone IR 5MG TABLET PO PRN (09:30)
[2019-11-30] MEDS ORDERED: ACETAMINOPHEN 325 MG TABLET PO PRN (09:30)
[2019-11-30] MEDS ORDERED: CARVEDILOL 6.25 MG TABLET ONE (11:55)
[2019-11-30] MEDS: CARVEDILOL 6.25 MG TABLET PO SCH (12:15)
[2019-11-30] MEDS: SODIUM CHLORIDE 0.9% 1,000 ML IV SCH (12:17)
[2019-11-30] MEDS: CHOLECALCIFEROL 400 UNITS TABLET PO SCH (16:32)
[2019-11-30] MEDS: ENOXAPARIN 40 MG/0.4 ML SQ SCH (16:33)
[2019-12-01 02:01] VITALS: BP 136/89
[2019-12-01] MEDS: OXYcodone IR 5MG TABLET PO PRN ×2 (02:04→07:29)
[2019-12-01] MEDS: SODIUM CHLORIDE 0.9% 1,000 ML IV SCH (02:10)
[2019-12-01] MEDS: CARVEDILOL 6.25 MG TABLET PO SCH (05:49)
[2019-12-01 07:24] VITALS: BP 180/88
[2019-12-01 07:25] VITALS: BP_SYST 180; BP_DIAS 63; BP_DIAS 69
[2019-12-01] MEDS: GABAPENTIN 300 MG CAPSULE PO SCH (08:13)
[2019-12-01] MEDS: FOLIC ACID 1 MG TABLET PO SCH (08:13)
[2019-12-01] MEDS: MULTIVITAMINS/MINERALS TABLET PO SCH (08:13)
[2019-12-01] MEDS: ASCORBIC ACID 500 MG TABLET PO SCH (08:13)
[2019-12-01] MEDS: MULTIVITS,STRESS FORMULA 1 TABLET PO SCH (08:13)
[2019-12-01] MEDS: THIAMINE 100MG TABLET PO SCH (08:14)
[2019-12-01 08:52] VITALS: BP 102/69
[2019-12-01] MEDS ORDERED: ISOSORBIDE DINITRATE 10 MG TABLET PO SCH (09:00)
[2019-12-01] MEDS ORDERED: SODIUM CHLORIDE 0.9% 1,000 ML IV SCH (09:30)
[2019-12-01] MEDS: ALBUTEROL/IPRATROPIUM 2.5MG/0.5MG, 3 ML NPPB SCH (09:40)
[2019-12-01] MEDS: BUDESONIDE 0.5 MG/2 ML INHA INH SCH (09:40)
== END 2019-12-01 09:58 | disposition left against medical advice (07) | DRG 433 ==
LOC: ED 10:38 → INTOOBSV 12:47 → EDIP 12:47 → OBSVTOIN 14:29 → 4EST 16:15
PROVIDERS: ADMIT Internal Medicine; ATTEND Internal Medicine
DX: K70.10 Alcoholic hepatitis without ascites (principal); E87.1 Hypo-osmolality and hyponatremia; E87.2 Acidosis; J44.1 Chronic obstructive pulmonary disease with (acute) exacerbation; R65.10 Systemic inflammatory response syndrome (SIRS) of non-infectious origin without acute organ dysfunction; F10.288 Alcohol dependence with other alcohol-induced disorder; F10.239 Alcohol dependence with withdrawal, unspecified; D75.89 Other specified diseases of blood and blood-forming organs; E83.42 Hypomagnesemia; Z53.29 Procedure and treatment not carried out because of patient's decision for other reasons; E87.6 Hypokalemia; G47.00 Insomnia, unspecified; G62.9 Polyneuropathy, unspecified; G89.29 Other chronic pain; I10 Essential (primary) hypertension; E87.8 Other disorders of electrolyte and fluid balance, not elsewhere classified; I77.819 Aortic ectasia, unspecified site; R73.9 Hyperglycemia, unspecified; I71.4 Abdominal aortic aneurysm, without rupture; M06.9 Rheumatoid arthritis, unspecified; R56.9 Unspecified convulsions; Z86.73 Personal history of transient ischemic attack (TIA), and cerebral infarction without residual deficits; Z87.891 Personal history of nicotine dependence; Z91.14 Patient's other noncompliance with medication regimen; Z90.89 Acquired absence of other organs
CPT/HCPCS: 36415; 96360; 96361; 99285; J7620; J7626; 71045; 80053; 80069; 80307; 81003; 83735; 84100; 84443; 84484; 85025; 93005; 94640; G0378; J1650; J3480; Q0162; J2060; J2920; J3475; J7030; J7040; J7050

== ENCOUNTER 2019-12-07 13:27 | Emergency (ER) | payer SELFPAY ==
[~2019-12-07] VITALS: Ht 182.9 cm; Wt 95.0 kg
--- NOTE | 2019-12-07 13:35 | NUR ---
Neptali brody in [facility] - 12/07/19 at 1345 by VANITA PT TO IMAGING AT THIS TIME
[2019-12-07 13:36] VITALS: BP 99/68
--- NOTE | 2019-12-07 13:48 | NUR ---
PT BIB [facility], PT WITH SI. PT DRANK 2 PINTS OF VODKA PER EMS REPORT. PT WITH NO PRIOR HX OF SI/SA. PT STATES HE IS DEPRESSED BECAUSE HIS WHOLE FAMILY HATES HIM. VSS. ERMD IN TO EVAL PT
--- NOTE | 2019-12-07 14:10 | NUR ---
break RN note: room is secure. sitter monitoring from [facility] for safety. pt informed of need to provide urine sample, urinal supplied. pt is a&o, resps even and unlabored, pt is uncooperative with RN request at this time, stating he wants his phone back. pt's belongings have been bagged and placed in locked cabinet by primary RN.
[2019-12-07 14:13] LABS: BASOPHILS # (AUTO) 0.05 x10^3/uL (0-0.1); BASOPHILS % (AUTO) 1 % (0-1); EOSINOPHILS # (AUTO) 0.53 x10^3/uL (0-0.4); EOSINOPHILS % (AUTO) 5 % (1-7); LYMPHOCYTES # (AUTO) 3.15 x10^3/uL (1-3.4); LYMPHOCYTES % (AUTO) 32 % (22-44); MD NO; MEAN CORPUSCULAR HEMOGLOBIN 32.5 pg (27.5-34.5); MEAN CORPUSCULAR VOLUME 98.5 fL (81-97); MEAN PLATELET VOLUME 7.6 fL (7.4-10.4); MONOCYTES # (AUTO) 1.41 x10^3/uL (0.2-0.8); MONOCYTES % (AUTO) 14 % (2-9); NEUTROPHILS # (AUTO) 4.61 x10^3/uL (1.8-6.8); NEUTROPHILS % (AUTO) 47 % (42-75); PLATELET COUNT 290 x10^3/uL (130-400); RED BLOOD COUNT 4.69 x10^6/uL (4.38-5.82); RED CELL DISTRIBUTION WIDTH 14.4 % (9.4-14.8)
[2019-12-07 14:22] LABS: ALBUMIN 3.4 g/dL (3.4-5.0); ANION GAP 8 mmol/L (5-15); CALCIUM 9.4 mg/dL (8.5-10.1); CHLORIDE 105 mmol/L (98-107); SALICYLATE LEVEL < 1.7 mg/dL (2.8-20.0)
[2019-12-07 14:23] LABS: CREATININE 1.05 mg/dL (0.7-1.3)
--- NOTE | 2019-12-07 14:40 | NUR ---
report given back to primary AVELINA Parker.
--- NOTE | 2019-12-07 16:24 | NUR ---
PT REQUESTING TO SPEAK TO PONCE. PT STATES HE IS NO LONGER SUICIDAL. PT WOULD LIKE TO GO HOME, PONCE IN TO EVAL PT.
--- NOTE | 2019-12-07 17:20 | NUR ---
ER TO DC PT. PT NO LONGER ENDORSING THOUGHTS OF SUICIDE.
== END 2019-12-07 17:27 | disposition home or self-care (01) ==
LOC: ED 15:39
DX: F10.220 Alcohol dependence with intoxication, uncomplicated (principal); J44.9 Chronic obstructive pulmonary disease, unspecified; I10 Essential (primary) hypertension; Y90.0 Blood alcohol level of less than 20 mg/100 ml
CPT/HCPCS: 36415; 80048; 80307; 82040; 85025; 99283

== ENCOUNTER 2020-01-08 18:22 | Emergency (ER) | payer SELFPAY ==
[~2020-01-08] VITALS: Ht 182.9 cm; Wt 92.0 kg
--- NOTE | 2020-01-08 18:50 | NUR ---
PT IN ROOM AT THIS TIME. DENIES HI/SI. CARDIAC, NIBP, AND O2 MONITORING IN PLACE. PT AWAITING MD BELTRAN AT THIS TIME. NO WANTS OR NEDDS EXPRESSED.
[2020-01-08] MEDS ORDERED: SODIUM CHLORIDE 0.9% 1,000ML IVBOLUS ONE (19:00)
[2020-01-08] MEDS ORDERED: THIAMINE 100MG TABLET PO ONE (19:00)
[2020-01-08] MEDS ORDERED: SODIUM CHLORIDE FLUSH 10ML SYR IVF ONE (19:00)
[2020-01-08] MEDS ORDERED: ALBUTEROL/IPRATROPIUM 2.5MG/0.5MG, 3 ML NPPB ONE (19:00)
[2020-01-08 19:10] LABS: BASOPHILS # (AUTO) 0.02 x10^3/uL (0-0.1); BASOPHILS % (AUTO) 0 % (0-1); EOSINOPHILS # (AUTO) 0.14 x10^3/uL (0-0.4); EOSINOPHILS % (AUTO) 2 % (1-7); LYMPHOCYTES # (AUTO) 2.67 x10^3/uL (1-3.4); LYMPHOCYTES % (AUTO) 32 % (22-44); MD NO; MEAN CORPUSCULAR HEMOGLOBIN 32.7 pg (27.5-34.5); MEAN CORPUSCULAR VOLUME 95.9 fL (81-97); MONOCYTES # (AUTO) 0.44 x10^3/uL (0.2-0.8); MONOCYTES % (AUTO) 5 % (2-9); NEUTROPHILS # (AUTO) 5.14 x10^3/uL (1.8-6.8); NEUTROPHILS % (AUTO) 61 % (42-75); PLATELET COUNT 287 x10^3/uL (130-400); RED BLOOD COUNT 4.93 x10^6/uL (4.38-5.82); RED CELL DISTRIBUTION WIDTH 14.4 % (9.4-14.8)
[2020-01-08 19:23] LABS: ALANINE AMINOTRANSFERASE 133 U/L (12-78); ANION GAP 14 mmol/L (5-15); CALCIUM 8.5 mg/dL (8.5-10.1); CHLORIDE 101 mmol/L (98-107); CREATININE 0.81 mg/dL (0.7-1.3)
[2020-01-08 19:33] LABS: ALKALINE PHOSPHATASE 129 U/L (45-117); BILIRUBIN,TOTAL 0.4 mg/dL (0.2-1.0); TOTAL PROTEIN 7.5 g/dL (6.4-8.2)
[2020-01-08] MEDS ORDERED: ONDANSETRON 2MG/ML, 2ML ONE (19:54)
[2020-01-08] MEDS ORDERED: THIAMINE 100MG TABLET ONE (19:54)
--- NOTE | 2020-01-08 20:01 | NUR ---
TASK RN: PATIENT MEDICATED PER EMAR, VERBAL ORDERS GIVEN FOR IV ZOFRAN 4MG AND VIT. B1 BY MD ILIANA
[2020-01-08] MEDS ORDERED: ONDANSETRON 2MG/ML, 2ML IVPush ONE (20:30)
[2020-01-08] MEDS ORDERED: PROMETHAZINE 25 MG/ML, 1ML IM ONE (20:30)
[2020-01-08] MEDS ORDERED: PROMETHAZINE 25 MG/ML, 1ML ONE (21:30)
[2020-01-08 21:44] LABS: MICROSCOPIC AUTO
[2020-01-08 21:45] LABS: CULTURE INDICATED? NO
[2020-01-08] MEDS ORDERED: DEXAMETHASONE 4 MG/ML, 5ML ONE (22:18)
--- NOTE | 2020-01-08 22:29 | NUR ---
REPORT FROM SHIRA QUAN. PT MEDICATED PER DEC. PT RESTING ON GURNEY, NO ACUTE DISTRESS. VSS. SAFETY PRECAUTIONS IN PLACE.
[2020-01-08] MEDS ORDERED: DEXAMETHASONE 4 MG/ML, 1ML IVPush ONE (22:30)
[2020-01-08] MEDS ORDERED: ALBUTEROL SULFATE 2.5 MG/3 ML NPPB ONE (22:30)
[2020-01-08] MEDS ORDERED: METOPROL (22:32)
[2020-01-08 23:10] VITALS: BP 132/83
--- NOTE | 2020-01-08 23:12 | NUR ---
UP TO THE BATHROOM ON STEADY GAIT.
== END 2020-01-08 23:59 | disposition home or self-care (01) ==
LOC: ED 23:45
DX: J44.1 Chronic obstructive pulmonary disease with (acute) exacerbation (principal); R53.1 Weakness; F10.20 Alcohol dependence, uncomplicated; Y90.9 Presence of alcohol in blood, level not specified; I10 Essential (primary) hypertension; M19.90 Unspecified osteoarthritis, unspecified site; Z87.891 Personal history of nicotine dependence; Z98.890 Other specified postprocedural states
CPT/HCPCS: 36415; 71045; 80053; 80307; 81001; 83735; 84443; 85025; 94640; 96372; 96374; 96375; 99284; J1100; J2405; J2550; J7030; J7613